=== PATIENT | female | born 1960 | race Caucasian/White ===

== ENCOUNTER 2019-10-20 17:07 | Emergency (ER) | payer OTHER ==
[~2019-10-20] VITALS: Ht 180.3 cm; Wt 81.7 kg
[2019-10-20] MEDS ORDERED: NORCO 5-325 TA1 EAC1 PO (19:56)
[2019-10-20] MEDS ORDERED: AUGMENTIN 875-1 EACH PO (19:56)
[2019-10-20 20:13] VITALS: BP 126/79
== END 2019-10-20 20:14 | disposition home or self-care (01) ==
LOC: M.ERS 17:07
DX: S51.811A Laceration without foreign body of right forearm, initial encounter (principal); W18.39XA Other fall on same level, initial encounter; Y93.89 Activity, other specified; Y92.89 Other specified places as the place of occurrence of the external cause; Y99.8 Other external cause status